=== PATIENT | male | born 1950 | race Caucasian/White ===

== ENCOUNTER 2019-02-20 23:01 | Inpatient (IN) ==
[2019-02-20] MEDS ORDERED: ZOFRAN IV ONE (23:41)
[2019-02-20] MEDS ORDERED: DILAUDID IV ONE (23:41)
[2019-02-20] MEDS ORDERED: NS 1,000 ML IV ONE (23:44)
[2019-02-21 00:18] LABS: URINE SOURCE CLEAN CATCH
[2019-02-21 00:28] LABS: BILIRUBIN URINE NEGATIVE (NEGATIVE); BLOOD URINE NEGATIVE (NEGATIVE); COLOR YELLOW; GLUCOSE URINE NEGATIVE (NEGATIVE); KETONE URINE TRACE mg/dL (NEGATIVE); LEUKOCYTES URINE NEGATIVE (NEGATIVE); NITRITE URINE NEGATIVE (NEGATIVE); PROTEIN URINE NEGATIVE (NEGATIVE); SP GRAVITY URINE 1.008; TURBIDITY URINE CLEAR (CLEAR); UR EPITHELIAL CELLS <10 /HPF (<10); URINE BACTERIA NEGATIVE /HPF; URINE RBC <10 /HPF (<10); URINE WBC <10 /HPF (<10); UROBILINOGEN URINE NORMAL (NORMAL)
[2019-02-21 00:40] LABS: BASO# 0.01 X1000 (0.0-0.2); BASO% 0.1 % (0.0-0.8); EOS# 0.12 X1000 (0.0-0.7); EOS% 0.8 % (0.0-10.0); HEMATOCRIT 41.2 % (42.0-52.0); HEMOGLOBIN 14.4 g/dL (14.0-18.0); IMM GRAN# 0.05 X1000 (0.0-0.04); IMM GRAN% 0.3 % (0.0-0.5); LYMPH# 2.04 X1000 (1.2-3.4); LYMPH% 13.3 % (20.5-51.1); MCH 29.1 PG (27-31); MCV 83.2 FL (81-99); MONO# 1.16 X1000 (0.11-0.59); MONO% 7.6 % (1.7-9.3); MPV 9.8 FL (7.4-10.4); NEUT# 11.98 X1000 (1.4-6.5); NEUT% 77.9 % (42.2-75.2); PLT 320 X1000 (130-400); RBC 4.95 XMIL (4.7-6.1); RDW 12.6 % (11.5-14.5); WBC 15.36 X1000 (4.8-10.8)
[2019-02-21 01:04] LABS: AGAP 14; ALB/GLOB RATIO 1.6; ALBUMIN 4.4 g/dL (3.5-5.0); ALKALINE PHOSPHATASE 97 U/L (32-122); BUN 17 mg/dL (8-22); CALCIUM 9.3 mg/dL (8.8-10.2); CHLORIDE 99 mmol/L (98-107); CK PROFILE 91 U/L (24-204); COSMO 282; CREATININE 0.9 mg/dL (0.7-1.2); ESTIMATED GFR > 60; GLUCOSE 177 mg/dL (70-104); GOT 38 U/L (10-34); GPT 36 U/L (10-44); LIPASE 2159 U/L (13-60); POTASSIUM 3.5 mmol/L (3.5-5.1); SODIUM 138 mmol/L (136-145); TCO2 25 mmol/L (25-35); TOTAL BILIRUBIN 0.55 mg/dL (0.20-1.00); TOTAL PROTEIN 7.2 g/dL (6.3-8.3)
[2019-02-21] MEDS ORDERED: NS 1,000 ML IV ONE (01:17)
[2019-02-21] MEDS ORDERED: DILAUDID IV ONE ×2 (01:17→04:24)
--- NOTE | 2019-02-21 01:26 | PROVIDER DOCUMENTATION ---
This chart was entered by Susie Love Scribe, acting as scribe for Moris Matthews MD. HPI-Abdominal Pain/GI Problem - General Source: patient - History of Present Illness-ABD Nature of Presenting Problems: Pt is 69/M presenting to ED w/ abd pain, n/v since about 9pm. Pt has hx of pancreatitis. Pt sts that he had BM that was normal this morning. Pt presented to ED via EMS. he states he has epigastric abdominal pain, diffuse to bilateral flanks. Abdominal Pain Onset Location: reports: epigastric Pain Radiation: reports: no radiation Quality of Pain: reports: aching Severity in ED: reports: moderate Onset/Duration: reports: 1-3 hours ago Timing: reports: still present Activities at Onset: reports: none Exposure to sick contacts?: No Modifying Factors: improves with: nothing Associated Symptoms: reports: nausea, vomiting. denies: chest pain, cough, shortness of breath Last BM: this morning Dark Stools Present?: reports: none noticed Rectal Bleeding: reports: none Rectal Pain: reports: none Emesis Description: reports: none <Moris Matthews - Last Filed: 02/21/19 01:18> <Bushra Salcido - Last Filed: 02/21/19 06:06> - General Chief Complaint: Nausea/Vomiting Stated Complaint: n/v Time Seen by Provider: 02/20/19 23:14 Allergies/Adverse Reactions: Patient Allergies Allergy/AdvReac Type Severity Reaction Status Date / Time acetaminophen [From Lortab] Allergy Severe ANAPHYLAXIS Verified 10/06/15 02:16 hydrocodone bitartrate * AdvReac Intermediate HIVES Verified 10/06/15 02:16 [From Lortab] Home Medications: Home Medication List Medication Instructions Recorded Confirmed Last Taken Type Omeprazole [Prilosec] 20 mg PO DAILY 06/08/12 09/05/18 1 Day Ago History ~09/04/18 Amlodipine [Norvasc] 5 mg PO DAILY 10/03/13 09/05/18 1 Day Ago History ~09/04/18 Lisinopril 10 mg PO DAILY #30 tab 09/05/18 Unknown Rx Metoprolol [Lopressor] 25 mg PO DAILY 09/05/18 09/05/18 1 Day Ago History ~09/04/18 Review of Systems - Adult - REVIEW OF SYSTEMS - ADULT Constitutional: reports: no symptoms reported. denies: chills, fever Eyes: reports: no symptoms reported Ears, Nose, Mouth & Throat: reports: no symptoms reported Cardiovascular: reports: no symptoms reported. denies: chest pain Respiratory: reports: no symptoms reported Gastrointestinal: reports: abdominal pain, nausea, vomiting. denies: diarrhea Genitourinary: reports: no symptoms reported Musculoskeletal: reports: no symptoms reported Integumentary: reports: no symptoms reported Neurological: reports: no symptoms reported. denies: dizziness/vertigo, headache/migraines Psychiatric: reports: no symptoms reported Endocrine: reports: no symptoms reported Hematologic/Lymphatic: reports: no symptoms reported Allergic/Immunologic: reports: no symptoms reported All Other Systems: Reviewed and Negative <Moris Matthews - Last Filed: 02/21/19 01:18> Past History - Adult - PAST MEDICAL HISTORY-ADULT Review of Records: reports: Old Records Reviewed, Nursing Assessment Review, Medications Reviewed, Social history reviewed & non-contributory. Major Childhood Illnesses: reports: denies history Cardiovascular: reports: denies history Respiratory: reports: denies history Gastrointestinal: reports: denies history Obstetrical/Gynecological: reports: denies history Genitourinary: reports: denies history Musculoskeletal: reports: denies history Neurological: reports: denies history Psychiatric: reports: denies history Endocrine/Immune: reports: denies history - SOCIAL HISTORY Smoking: denies, non-smoker Substance Use: none/never Alcohol Use Frequency: never Living Situation: family <Moris Matthews - Last Filed: 02/21/19 01:18> Physical Exam-General - CONSTITUTIONAL General Appearance: appears well, alert, mild distress - EYES Eyes: PERRL/EOMI, pink conjunctivae - HEAD, EARS, NOSE, MOUTH & THROAT HENMT: normocephalic/atraumatic, moist mucous membranes, normal ENT inspection, TMs normal - NECK Neck: non-tender - RESPIRATORY Respiratory: lungs clear - CARDIOVASCULAR Cardiovascular: regular rate, rhythm - GASTROINTESTINAL (ABDOMEN) Abdominal Exam: normal bowel sounds, rigid, tenderness (diffuse tenderness) - GENITOURINARY Male Genitalia: other (pt has ruptured L testicle, non tender) - LYMPHATIC Lymphatic: no adenopathy - MUSCULOSKELETAL Back Exam: normal inspection Extremity: normal range of motion, non-tender, normal gait, normal inspection - SKIN Integumentary: normal color, warm/dry - NEUROLOGIC Neurologic: grossly normal - PSYCHIATRIC Psych/Mental Status: normal mood/affect, normal thought content, normal thought process, oriented x 3 <Moris Matthews - Last Filed: 02/21/19 01:18> Progress - PLAN OF CARE/RESULTS Progress/Plan/Lab Results: Vital Signs - 8 hr 02/20/19 23:14 Temperature 97.6 F Pulse Rate 80 Respiratory Rate 16 Blood Pressure 158/91 O2 Sat by Pulse Oximetry 97 Orders Category Date Time Status Saline Loc NOW Care 02/20/19 23:40 Active CHEST-2 VIEWS [RAD] Stat Exams 02/20/19 23:41 Ordered CBC WITH ELECTRONIC DIFF [HEME] Stat Lab 02/20/19 23:40 Uncollected CK PROFILE [SP CHEM] Stat Lab 02/20/19 23:41 Uncollected COMPREHENSIVE METABOLIC PANEL [CHEM] Stat Lab 02/20/19 23:41 Uncollected LIPASE [CHEM] Stat Lab 02/20/19 23:41 Uncollected TROPONIN T Stat Lab 02/20/19 23:41 Uncollected URINALYSIS W/POSS RFLX CULT [URINALYSIS] Stat Lab 02/20/19 23:41 Uncollected 0.9% Sodium Chloride Inj [Ns] 1,000 ml Med 02/20/19 23:44 Active IV 999 mls/hr Hydromorphone [Dilaudid] Med 02/20/19 23:41 Discontinued 1 mg IV NOW ONE Ondansetron [Zofran] Med 02/20/19 23:41 Discontinued 4 mg IV NOW ONE EKG [EKG] Stat Ther 02/20/19 23:41 Ordered A/p: Pancreatitis. elevated lipase >2000. Pain controlled. Able to tolerate PO intake. elevated whit count. vitals stable. will DC home with [place] and zofran, with close FU with PCP in 2-3 days. Result Diagrams: 02/20/19 23:52 02/20/19 23:52 <Moris Matthews - Last Filed: 02/21/19 01:18> - PLAN OF CARE/RESULTS Progress/Plan/Lab Results: Vital Signs - 8 hr 02/20/19 23:14 Temperature 97.6 F Pulse Rate 80 Respiratory Rate 16 Blood Pressure 158/91 O2 Sat by Pulse Oximetry 97 Laboratory Results - last 24 hr 02/20/19 02/20/19 02/20/19 23:52 23:52 23:52 WBC 15.36 H RBC 4.95 Hgb 14.4 Hct 41.2 L MCV 83.2 MCH 29.1 MCHC 35.0 RDW Std Deviation 12.6 Plt Count 320 MPV 9.8 Immature Gran % (Auto) 0.3 Neut % (Auto) 77.9 H Lymph % (Auto) 13.3 L [place] % (Auto) 7.6 Eos % (Auto) 0.8 Baso % (Auto) 0.1 Immature Gran # (Auto) 0.05 H Neut # (Auto) 11.98 H Lymph # (Auto) 2.04 [place] # (Auto) 1.16 H Eos # (Auto) 0.12 Baso # (Auto) 0.01 Sodium 138 Potassium 3.5 Chloride 99 Carbon Dioxide 25 Anion Gap 14 BUN 17 Creatinine 0.9 Estimated GFR/1.73 m2 > 60 BUN/Creatinine Ratio 19 Glucose 177 H Calculated Osmolality 282 Calcium 9.3 Total Bilirubin 0.55 AST 38 H ALT 36 Alkaline Phosphatase 97 Creatine Kinase 91 Troponin T < 0.010 Total Protein 7.2 Albumin 4.4 Globulin 2.8 Albumin/Globulin Ratio 1.6 Lipase 2159 H Urine Source Urine Color Urine Turbidity Urine pH Ur Specific [place] Urine Protein Ur Glucose (Stick) Ur Ketones (Stick) Urine Blood Urine Nitrite Urine Bilirubin Urobilinogen Dipstick Urine Leukocytes Urine WBC (Auto) Urine RBC (Auto) U Epithel Cells (Auto) Urine Bacteria (Auto) 02/21/19 00:02 WBC RBC Hgb Hct MCV MCH MCHC RDW Std Deviation Plt Count MPV Immature Gran % (Auto) Neut % (Auto) Lymph % (Auto) [place] % (Auto) Eos % (Auto) Baso % (Auto) Immature Gran # (Auto) Neut # (Auto) Lymph # (Auto) [place] # (Auto) Eos # (Auto) Baso # (Auto) Sodium Potassium Chloride Carbon Dioxide Anion Gap BUN Creatinine Estimated GFR/1.73 m2 BUN/Creatinine Ratio Glucose Calculated Osmolality Calcium Total Bilirubin AST ALT Alkaline Phosphatase Creatine Kinase Troponin T Total Protein Albumin Globulin Albumin/Globulin Ratio Lipase Urine Source CLEAN CATCH Urine Color YELLOW Urine Turbidity CLEAR Urine pH 7.0 Ur Specific [place] 1.008 Urine Protein NEGATIVE Ur Glucose (Stick) NEGATIVE Ur Ketones (Stick) TRACE A Urine Blood NEGATIVE Urine Nitrite NEGATIVE Urine Bilirubin NEGATIVE Urobilinogen Dipstick NORMAL Urine Leukocytes NEGATIVE Urine WBC (Auto) <10 Urine RBC (Auto) <10 U Epithel Cells (Auto) <10 Urine Bacteria (Auto) NEGATIVE Orders Category Date Time Status Saline Loc NOW Care 02/20/19 23:40 Active CHEST-2 VIEWS [RAD] Stat Exams 02/20/19 23:[address] ABD/PELVIS W/IV CONT ONLY [CT] Stat Exams 02/21/19 01:42 Taken CBC WITH ELECTRONIC DIFF [HEME] Stat Lab 02/21/19 00:06 Completed CK PROFILE [SP CHEM] Stat Lab 02/21/19 00:06 Completed COMPREHENSIVE METABOLIC PANEL [CHEM] Stat Lab 02/21/19 00:06 Completed LIPASE [CHEM] Stat Lab 02/21/19 00:06 Completed TROPONIN T Stat Lab 02/21/19 00:06 Completed URINALYSIS W/POSS RFLX CULT [URINALYSIS] Stat Lab 02/21/19 00:02 Completed 0.9% Sodium Chloride Inj [Ns] 1,000 ml Med 02/20/19 23:44 Discontinued IV 999 mls/hr 0.9% Sodium Chloride Inj [Ns] 1,000 ml Med 02/21/19 01:17 Discontinued IV 999 mls/hr Hydromorphone [Dilaudid] Med 02/20/19 23:41 Discontinued 1 mg IV NOW ONE Hydromorphone [Dilaudid] Med 02/21/19 01:17 Discontinued 1 mg IV NOW ONE Ondansetron [Zofran] Med 02/20/19 23:41 Discontinued 4 mg IV NOW ONE EKG [EKG] Stat Ther 02/20/19 23:41 Ordered Result Diagrams: 02/20/19 23:52 02/20/19 23:52 - REASSESSMENT Reassessment #1 Status: worsening (pt signed out to me by Dr. Matthews pending CT results. CT consistent with pancreatitis without necrotizing component. Continues to have pain and nausea will treat and reassess.) Reassessment #2 Status: unchanged (Continued pain and nausea. Will admit for further evaluation and treatment. Discussed case with Dr. Rey hospitalist who will see and admit pt) - CT/MRI 1 CT Study: Abdomen, Pelvis Impression: Abnormal (per radiologist read: "inflammatory changes surrounding the head and body of the pancreas without evidence of organization or internal necrosis, findings consistent with pancreatitis. stable hypoattenuating lesion present within the pancreatic tail measuring 6mm") <Bushra Salcido - Last Filed: 02/21/19 06:06> Departure - Departure Date of Disposition Decision: 02/21/19 Certified Medical Emergency: Emergent - Critical Care Note This patient required my direct & personal management of CC.: No <Moris Matthews - Last Filed: 02/21/19 01:18> - Departure Time of Disposition Decision: 06:06 <Bushra Salcido - Last Filed: 02/21/19 06:06> - Departure DIAGNOSIS: Pancreatitis Qualifiers: Chronicity: acute Pancreatitis type: other Acute pancreatitis complication: no infection or necrosis Qualified Code(s): K85.80 - Other acute pancreatitis without necrosis or infection Disposition: ADMITTED INPATIENT 09 Condition: Stable Additional Freetext Instructions: We have examined and treated you today on an emergency basis only. This was not a substitute for, or an effort to provide, complete medical care. In most cases, you must let your doctor check you again. Tell your doctor about any new or lasting problems. We cannot recognize and treat all injuries or illnesses in one Emergency Department visit. If you had special tests, such as X-rays or CT scans, will be reviewed by radiologist and will call you if there are any new suggestions Follow up with primary care provider in 1 to 2 days if no improvement. If you do not have a primary care provider, you need to choose one as soon as possible. Take medicines as prescribed. Monitor for any side effects or adverse events from medications. If any side effect, adverse event or rash develops, or if you suspect any other adverse reaction to the medication, then discontinue the medication immediately and contact clinic /PCP or go to the nearest ER. Narcotic meds / sedative meds instruction - patent advised not to drive, operate any machinery or go into water after taking meds as it may impair mental ability to react to the situation in an appropriate manner. Continue other current medicines. Follow up with PCP within 24-48 hours, or sooner if symptoms worsen or fail to improve. Patient / guardian verbalizes understanding of treatment plan, medication, and side effects and agrees with treatment plan. Patient leaves ER in stable condition and ambulatory state. Return to ER as needed. Discharge instructions reviewed verbally and given to patient in written form. Follow up with primary care provider. Attestation - Physician/ ANDREA Attestation Patient care was provided by Advanced Practice Provider:: No The physician spent face to face time with patient:: Yes Advanced Practice Provider documentation review:: Supervising physician onsite and consulted in the evaluation and care of this patient. The physician did have a face to face encounter with the patient. <Moris Matthews - Last Filed: 02/21/19 01:18> This chart was documented by the indicated scribe, (Susie Love, Scribe) and accurately reflects the services I performed and decisions made by me, Moris Matthews MD, as attested by the provider's signature.
[2019-02-21] MEDS ORDERED: ZOFRAN IV ONE (04:24)
[2019-02-21] MEDS ORDERED: NS 1,000 ML IV SCH (07:00)
[2019-02-21] MEDS: DILAUDID IV PRN ×5 (08:09→22:08)
[2019-02-21] MEDS: LOVENOX SUBQ SCH (08:11)
[2019-02-21] MEDS ORDERED: SODIUM CHLORIDE 0.9% INJ SCH ×2 (09:00→10:45)
[2019-02-21] MEDS ORDERED: PRILOSEC PO SCH (09:00)
[2019-02-21] MEDS ORDERED: PROTONIX IV SCH (09:00)
--- NOTE | 2019-02-21 09:01 | Diag Imaging Result Doc PS360 ---
EXAM: CHEST-2 VIEWS INDICATION: sob TECHNIQUE: 2 views COMPARISON: 10/06/2015 FINDINGS: The lungs are grossly clear. There is no discrete pleural fluid collection or pneumothorax. The cardiomediastinal silhouette and central vasculature are grossly unremarkable. IMPRESSION: No evidence of acute pathology by plain radiograph. Electronically signed by Ezequiel Bloom 02/21/2019 8:59 AM
--- NOTE | 2019-02-21 09:32 | HISTORY AND PHYSICAL ---
HISTORY OF PRESENT ILLNESS: Mr. Wynn had supper last night. I think it was some shrimp at about 5:00. About 8:30, he started having pain, epigastric, left side, consistent with pain he has had before with pancreatitis. He has a history of episodes of pancreatitis and he has had a stent placed. He has a pancreatic pseudocyst. He is status post cholecystectomy, history of hypertension, history of gastroesophageal reflux disease. I think the last time he was here was 2013, admission for acute cystitis, acute pancreatitis, and pancreatic pseudocyst. He underwent cholecystectomy during that admission on 10/05/2013 and returned back on 11/08/2013 with a 4-day history of right upper quadrant and epigastric pain associated with nausea, vomiting, and occasional diarrhea. The patient had a fever of 101 at that time and workup. I think he eventually ended up going to [place]. He was under Dr. Lares's direction. Transferred to [facility]. He had a complicated pseudocyst and a lot of gallbladder sludge, and status post cholecystectomy in September 2013, and was treated conservatively. Elevated liver enzymes probably secondary to the pseudocyst so he was transferred to [facility], and I think he had a stent placed, drainage of the pseudocyst, it is my understanding. PAST SURGICAL HISTORY: 1. Status post cholecystectomy. 2. Stent placed, pancreatic stent I believe sometime in 2013. FAMILY HISTORY: Dad of myocardial infarction. SOCIAL HISTORY: No history of tobacco or ethanol or illicit drugs. ALLERGIES: Hydrocodone is listed. REVIEW OF SYSTEMS: General: He has not noticed any weight gain or loss, or fever or chills. HEENT: Unremarkable. No change in hearing or visual acuity reported. No neck pain or cervical adenopathy. Respiratory: No increased work of breathing or dyspnea. Cardiovascular: No chest pain or tachy palpitations. GI and : Unremarkable. No change in bowels or complaints of dysuria or gross hematuria. The pain started yesterday evening but apparently, he has had no real change in his diet. Endocrinologic and Hematologic: No significant history. Musculoskeletal and Neurologic: No significant complaints. PHYSICAL EXAMINATION: VITAL SIGNS: Temperature 97.6 degrees, pulse 98, respirations 19, blood pressure 130/67. HEENT: Pupils are equal and round. LUNGS: Clear in all lung graves. Lungs are clear anterolateral. CARDIOVASCULAR: Regular rhythm and rate without murmur or S3. ABDOMEN: Soft. Tender and most tender at his epigastric area. Diminished bowel sounds. SKIN: Warm and dry. Without any discoloration. No pedal edema. HEIGHT: Height 5 feet 7 inches. NECK: No distended neck veins. CVP less than 6 cm from the right atrium. I do not appreciate any cervical or supraclavicular adenopathy. LABORATORY DATA: White count 15,360, hematocrit 41, platelet count 320,000. Sodium 138, potassium 3.5, chloride 99, BUN 17, creatinine 0.9, calcium is 9.3. AST is 38, ALT is 36, alkaline phosphatase is 97, albumin is 4.4. Urinalysis unremarkable. ASSESSMENT AND PLAN: 1. Pancreatitis. Lipase is 2159. As far as I know, he still has a stent. I am not sure if that stent is in the pseudocyst or what is involved. We will get gastroenterology to help us with this. He has not started on any real new medications other than his losartan for blood pressure. I think we will hold the losartan for now. We will give him normal saline at 125 mL an hour. For pain control, he can have Dilaudid 1 mg 3 hours as needed for pain. We will hold the Cozaar. We will put him on Protonix 40 mg intravenous every 12 hours. I think we will hold the Norvasc as well at this time. We will follow up with his pancreatic enzymes. 2. Hypertension. I am going to hold his medicines for right now. We will watch his blood pressure. 3. History of gastroesophageal reflux. We have him on high-dose proton pump inhibitor, 40 mg intravenously every 12 hours. We will consult gastroenterology. cc: Shon Butron MD
--- NOTE | 2019-02-21 10:53 | Diag Imaging Result Doc PS360 ---
EXAM: CT ABD/PELVIS W/IV CONT ONLY INDICATION: pancreatitis hx of necrotizing pancreatitis TECHNIQUE: This exam was performed using automated exposure control, adjustment of mA or kV according to patient size, and/or use of iterative reconstruction technique. COMPARISON: 11/07/2013 FINDINGS: There is minimal linear scarring and/or atelectasis at the lung bases. There is mild to moderate hepatic steatosis. There has been a prior cholecystectomy. There is no significant biliary dilatation. There is extensive inflammatory stranding and a small to moderate amount of nonloculated free fluid around the head and body of the pancreas consistent with acute pancreatitis. There is a stable tiny cystic appearing focus involving the distal pancreatic tail. On the previous study there was a large pseudocyst that has resolved. No definite pseudocyst is appreciated on the current study. There is nothing to suggest peripancreatic abscess there is nothing that would suggest acute pancreatic necrosis. The portal and splenic veins are patent. The spleen, adrenal glands, kidneys, and urinary bladder are unremarkable. There is a small right inguinal hernia that contains only fat. There are stable bilateral scrotal hydroceles, largest on the left. The appendix is normal. There is moderate uncomplicated sigmoid colonic diverticulosis. There is no evidence of diverticulitis. There is a stable small hiatal hernia. There is no focal bowel wall thickening and no evidence of bowel obstruction. The remainder of the GI tract is essentially unremarkable. There are shotty small lymph nodes at the root of the mesentery with surrounding haziness. This is also seen on the previous study but the nodes were actually larger on the prior study. Although nonspecific, this is often associated with chronic mesenteric panniculitis. There is multilevel spondylosis and there is stable chronic spondylolysis at L4 with mild anterolisthesis. IMPRESSION: 1.Acute pancreatitis as described with no definite acute pancreatic necrosis or peripancreatic abscess. 2.Other incidental/nonacute findings detailed above. Electronically signed by Ezequiel Bloom 02/21/2019 10:50 AM
--- NOTE | 2019-02-21 11:13 | GASTROENTEROLOGY CONSULTATION ---
DATE: 02/21/2019 REASON FOR CONSULTATION: Acute pancreatitis. HISTORY OF PRESENT ILLNESS: Mr. 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 The patient reports being in his usual state of health until about 8:30 p.m. last evening when he developed upper abdominal pain with associated bilious emesis. He describes the pain as being constant and 9 out of 10. He denies any fevers, chills, sweats, shortness of breath, chest pain, change in bowel habits, abnormal weight loss, rectal bleeding or melena. He denies any new medications, sick contacts, or recent hospitalizations. He is followed by Dr. Ayers at [facility] and was scheduled for an MRI in the next couple of weeks to evaluate his pancreas. He is not aware of having a history of chronic pancreatitis in the past. He has had at least 2 EUS's since his last episode of pancreatitis in 2013. REVIEW OF SYSTEMS: As per HPI, otherwise 12 point review of systems is negative. PAST MEDICAL HISTORY: As per HPI. PAST SURGICAL HISTORY: 1. Hernia repair. 2. Percutaneous pseudocyst drainage. 3. Cystogastrostomy. 4. Pancreatic stent placement. 5. Cholecystectomy. MEDICATIONS: 1. Omeprazole. 2. Amlodipine. 3. Losartan. ALLERGIES: Codeine. FAMILY HISTORY: No family history of pancreatitis. SOCIAL HISTORY: No smoking, alcohol, or drug use. PHYSICAL EXAMINATION: Vital Signs: Temperature is 97.5 degrees, heart rate of 104, respiratory rate 24, blood pressure 168/72, O2 saturation 97% on room air. General: Patient is awake, alert, oriented, in moderate distress secondary to pain. HEENT: Sclerae anicteric. Moist mucous membranes. Extraocular motor intact. Neck: Supple. No JVD or lymphadenopathy. Cardiac: Tachycardic, regular. No murmurs. Lungs: Clear to auscultation bilaterally. No wheezing. Abdomen: Obese, soft, diffuse tenderness to palpation, worse in the upper abdomen. No rebound, voluntary guarding. Bowel sounds are present. No tympany. Extremities: No clubbing, cyanosis, or edema. Skin: Diaphoretic, warm and well perfused. Neurologic: Nonfocal. LABORATORY DATA: White count of 15.36, hemoglobin 14.4, platelets of 320,000. CMP notable for glucose of 177, AST of 38, lipase of 2159. UA shows ketones. Prior IgG4 was normal. Prior triglycerides were normal in 2014. Chest x-ray shows no acute pathology. CT abdomen and pelvis read is pending. ASSESSMENT AND PLAN: Ms. Best Wynn is a 69-year-old man with notable past medical history of necrotizing pancreatitis complicated by pseudocyst requiring drainage and pancreatic stent placement, who presents with acute pancreatitis. The patient has had a negative workup for autoimmune and pancreatitis, elevated triglycerides and MRI for pancreatic divisum. 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 I do not have any records from his EUS procedures in the past. He does have a MRI here that was negative for divisum or stricture. He was scheduled for MRI as an outpatient with Dr. Ayers We will likely postpone this for now as it would not be helpful during acute episode of pancreatitis. Await the imaging results. He does have leukocytosis but is afebrile. 1. For his pancreatitis, we will treat supportively with IV fluids, pain control, NPO status, serial abdominal exams and labs. 2. Leukocytosis likely acute phase reactant in the setting of pancreatitis. We will continue to trend his CBC.We will hold off on antibiotics for now. 3. History of pancreatic pseudocysts we will await CT scan results for further evaluation. Of note, patient reports having a staph infection, likely secondary to pseudocyst drainage. 4. Hypertension, we will hold blood pressure medications for now. 5. Gastroesophageal reflux disease. Continue proton pump inhibitor IV once daily. Thank you for this consult. We will follow with you. Please call with any questions or concerns. [facility]ITALAnthony
[2019-02-21] MEDS: ZOFRAN IV PRN ×3 (11:23→22:07)
[2019-02-21] MEDS: PROTONIX IV SCH (16:00)
[2019-02-21] MEDS: NS 1,000 ML IV SCH (18:10)
[2019-02-22] MEDS: DILAUDID IV PRN ×4 (03:34→17:53)
[2019-02-22] MEDS: ZOFRAN IV PRN ×3 (03:36→14:13)
[2019-02-22] MEDS: NS 1,000 ML IV SCH ×3 (05:14→20:44)
[2019-02-22] MEDS: LOVENOX SUBQ SCH ×2 (05:35→07:45)
[2019-02-22 07:30] LABS: BASO# 0.02 X1000 (0.0-0.2); BASO% 0.1 % (0.0-0.8); EOS# 0.01 X1000 (0.0-0.7); HEMATOCRIT 43.7 % (42.0-52.0); HEMOGLOBIN 14.7 g/dL (14.0-18.0); IMM GRAN# 0.08 X1000 (0.0-0.04); IMM GRAN% 0.3 % (0.0-0.5); LYMPH% 7.3 % (20.5-51.1); MCH 28.8 PG (27-31); MCHC 33.6 g/dL (33-37); MCV 85.7 FL (81-99); MONO# 1.81 X1000 (0.11-0.59); MONO% 6.9 % (1.7-9.3); MPV 9.9 FL (7.4-10.4); NEUT# 22.25 X1000 (1.4-6.5); NEUT% 85.4 % (42.2-75.2); PLT 303 X1000 (130-400); RDW 13.5 % (11.5-14.5); WBC 26.07 X1000 (4.8-10.8)
[2019-02-22 07:45] LABS: AGAP 15; BUN 19 mg/dL (8-22); CALCIUM 8.9 mg/dL (8.8-10.2); CHLORIDE 104 mmol/L (98-107); CHOLESTEROL 167 mg/dL (0-200); COSMO 285; CREATININE 0.9 mg/dL (0.7-1.2); ESTIMATED GFR > 60; GLUCOSE 160 mg/dL (70-104); HDL 41 mg/dL (35-55); LDL 105 mg/dL; POTASSIUM 4.2 mmol/L (3.5-5.1); SODIUM 140 mmol/L (136-145); TCO2 21 mmol/L (25-35); TRIGLYCERIDES 107 mg/dL (39-160); VLDL 21 mg/dL
[2019-02-22 08:16] LABS: FREE T4 0.98 ng/dL (0.93-1.70); TSH 3.04 uIUmL (0.27-4.20)
[2019-02-22 08:34] LABS: BANDS 6 % (0-1); LYMPHS 6 % (21-51); SEGS 88 % (42-75)
[2019-02-22 08:50] LABS: ALB/GLOB RATIO 1.1; ALBUMIN 3.7 g/dL (3.5-5.0); DIRECT BILIRUBIN 0.2 mg/dL (0.00-0.20); TOTAL BILIRUBIN 0.94 mg/dL (0.20-1.00); TOTAL PROTEIN 7.2 g/dL (6.3-8.3)
--- NOTE | 2019-02-22 10:24 | PROGRESS NOTE ---
DATE: 02/22/2019 SUBJECTIVE: Mr. Wynn was feeling much better. His pain went from a 10 to about a 6 now. He is requesting some clear liquids and I think I will start him on that. OBJECTIVE: Temperature 98.7 degrees, pulse 111, respirations 16, blood pressure 148/88. Pupils are equal and round. No distended neck veins. Lungs are clear in all lung graves. Cardiovascular Examination: Regular rhythm and rate without murmur or S3. Abdomen is log deck tender in the epigastrium and left upper quadrant but less tender than yesterday. No pedal edema. Urine output was over 1300 mL. ASSESSMENT AND PLAN: 1. 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 I think the initial insult was in 2011. I think the stent was placed in 2013. He has had negative workup for autoimmune pancreatitis, elevated triglycerides, and an MRI that showed pancreatic divisum. 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 I do not have the records but he has had endoscopic ultrasound procedures and followed in [place] as an outpatient by Dr. Ayers. He is scheduled for an MRI later on this month. Continue nothing per oral. Let him try some clear liquids at his request. 2. Leukocytosis, likely acute phase, reactant in the setting of pancreatitis. I do not see any evidence of infection. 3. Pancreatic pseudocyst. Await for CT results. Of note, Dr. Valverde commented on he had a history of staphylococcus infection, likely secondary to pseudocyst drainage. 4. Blood pressure. Continue blood pressure medications. 5. Gastroesophageal reflux disease. I will try clear liquids and see if this will help. cc: Shon Burton MD
[2019-02-22] MEDS ORDERED: MOTRIN PO PRN (11:03)
[2019-02-22] MEDS: PROTONIX IV SCH (12:52)
--- NOTE | 2019-02-22 16:05 | GASTROENTEROLOGY PROGRESS NOTE ---
DATE: 02/22/2019 SUBJECTIVE: Patient is resting in bed. He complains of abdominal pain. It has improved slightly from yesterday. He was admitted with pancreatitis. His lipase has improved. He denies any fevers, rigors, or chills. OBJECTIVE: Vital signs: Temperature 98.7 degrees, pulse rate of 111, respiratory rate of 16, blood pressure 140/88, saturating 93% on room air. Body weight of 230 pounds, BMI of 36 kg/m2. General appearance: Obese, lying in bed, in no acute distress. HEENT: No pallor. No icterus. Pupils equal, reactive to light and accommodation. Neck: Supple. Abdomen: Discomfort in the epigastrium. Distention. Mild protuberance of the abdomen noted. No guarding. Extremities: No cyanosis, clubbing. Neurologic: Alert, awake, oriented x3. LABS: Hemoglobin and hematocrit are 14.7 and 43.7, white count of 26, platelet count of 303,000. Sodium 140, potassium 4.2, chloride 104, bicarb of 20, anion gap 15, BUN of 19, creatinine 0.9, glucose of 160, calcium 8.9, total bilirubin is 0.94, direct 0.2, AST 26, ALT 31, alkaline phosphatase 87, total protein 7.2, albumin of 3.7. B12 of 389, folate of 36.8. Urinalysis showing trace ketones. CT scan done on admission on 02/21 showed acute pancreatitis with no definite acute pancreatic necrosis or peripancreatic abscess. There is a tiny cystic appearing focus involving the distal pancreatic tail. There has been prior cholecystectomy. There is mild to moderate hepatic steatosis. Portal and splenic veins are patent. There is a right inguinal hernia that contains only fat. There are stable bilateral scrotal hydroceles, larger on the left. There is moderate uncomplicated sigmoid colonic diverticulosis. There was no evidence of diverticulitis. There is a stable small hiatal hernia. Multilevel spondylosis and stable chronic spondylosis at L4 with mild anterolisthesis. ASSESSMENT AND PLAN: 1. Acute pancreatitis, unclear etiology. Could be a common bile duct or pancreatic duct stricture or biliary sludge. The patient is scheduled for MRI and MRCP as an outpatient at [facility] with his primary gastroenterology on March 02, 2019. In the interim, we will continue on IV fluids, IV pain control, IV antiemetics. We will keep him on a clear liquid diet. 2. Gastrointestinal prophylaxis with PPIs. 3. Fatty liver. Patient needs to lose weight. He will continue a low-fat diet. 4. Reflux disease. Continue PPIs as above. 5. Disposition. Patient will continue to follow up at [facility] for further management of his recurrent pancreatitis. This is his 3rd episode of pancreatitis since 2013. His prior pancreatitis has been complicated with pancreatic necrosis and pseudocyst requiring drain placement and he had ERCP and stent placement of the pancreatic duct at [facility] many years ago. 6. We will follow along. The above plan was discussed with the patient and family at bedside and all questions answered. Please call us with any further questions. cc: MD Mike Sampson MD
[2019-02-22] MEDS: NORVASC PO SCH (17:53)
[2019-02-22] MEDS: COZAAR PO SCH (17:53)
[2019-02-23] MEDS: DILAUDID IV PRN (00:26)
[2019-02-23] MEDS: NS 1,000 ML IV SCH (06:17)
[2019-02-23] MEDS: LOVENOX SUBQ SCH (06:18)
[2019-02-23 06:40] LABS: BASO# 0.03 X1000 (0.0-0.2); BASO% 0.1 % (0.0-0.8); EOS# 0.14 X1000 (0.0-0.7); EOS% 0.7 % (0.0-10.0); HEMATOCRIT 38.3 % (42.0-52.0); HEMOGLOBIN 13.3 g/dL (14.0-18.0); IMM GRAN# 0.08 X1000 (0.0-0.04); IMM GRAN% 0.4 % (0.0-0.5); LYMPH# 2.11 X1000 (1.2-3.4); LYMPH% 10.1 % (20.5-51.1); MCH 29.4 PG (27-31); MCHC 34.7 g/dL (33-37); MCV 84.7 FL (81-99); MONO# 1.91 X1000 (0.11-0.59); MONO% 9.2 % (1.7-9.3); MPV 9.4 FL (7.4-10.4); NEUT# 16.53 X1000 (1.4-6.5); NEUT% 79.5 % (42.2-75.2); PLT 257 X1000 (130-400); RBC 4.52 XMIL (4.7-6.1); RDW 12.9 % (11.5-14.5)
[2019-02-23 06:58] LABS: AGAP 11; ALB/GLOB RATIO 1.1; ALBUMIN 3.5 g/dL (3.5-5.0); ALKALINE PHOSPHATASE 80 U/L (32-122); BUN 16 mg/dL (8-22); CALCIUM 8.5 mg/dL (8.8-10.2); CHLORIDE 102 mmol/L (98-107); COSMO 280; CREATININE 0.8 mg/dL (0.7-1.2); ESTIMATED GFR > 60; GLUCOSE 148 mg/dL (70-104); GOT 27 U/L (10-34); GPT 30 U/L (10-44); POTASSIUM 3.2 mmol/L (3.5-5.1); SODIUM 138 mmol/L (136-145); TCO2 25 mmol/L (25-35); TOTAL BILIRUBIN 1.17 mg/dL (0.20-1.00); TOTAL PROTEIN 6.6 g/dL (6.3-8.3)
[2019-02-23 08:39] LABS: HEMOGLOBIN A1C 6.3 % (4.8-6.0)
[2019-02-23] MEDS ORDERED: KLOR-CON PO ONE (09:01)
[2019-02-23] MEDS: NORVASC PO SCH (09:46)
[2019-02-23] MEDS: COZAAR PO SCH (09:46)
[2019-02-23] MEDS: NORCO-5 PO PRN ×3 (09:47→23:52)
[2019-02-23] MEDS: PROTONIX PO SCH (11:07)
--- NOTE | 2019-02-23 18:15 | PROGRESS NOTE ---
DATE: 02/23/2019 SUBJECTIVE: The patient states that he feels a lot better today. His abdominal pain has improved. He has had no further nausea or vomiting. OBJECTIVE: Vital Signs: Temperature 98.7 degrees, blood pressure 154/74, heart rate 109, respirations 15, O2 saturation 96% on room air. General: This is a chronically ill-appearing elderly male lying in bed in no acute distress. Heart: S1, S2 normal. Tachycardic. Lungs: Equal air entry bilaterally. No crackles. No rales. Abdomen: Positive bowel sounds. Soft, nontender, nondistended. Extremities: No edema, no cyanosis. Neurologic: The patient is alert and oriented x3. LABS: White blood cell count 20, hemoglobin 13, hematocrit 38, platelets 257,000, sodium 138, potassium 3.2, chloride 102, CO2 25, BUN 16, creatinine 0.8, glucose 148, A1c 6.3. ASSESSMENT AND PLAN: 1. Acute pancreatitis. This appears to be improving slowly. The patient remains on IV fluids. His diet has been advanced by GI. Continue to monitor for improvement. 2. Prediabetes. The patient's hemoglobin A1c is 6.3. The patient was counseled about the importance of weight loss and proper diet. We will cover the patient with sliding scale insulin while hospitalized. We will also consult with the dietitian. 3. Hypokalemia. We will replace the patient's potassium. 4. Leukocytosis. Improved. 5. Deep vein thrombosis prophylaxis. Continue on Lovenox. cc: Karie Gomez MD MTDD
--- NOTE | 2019-02-23 23:48 | PROVIDER PROGRESS NOTE ---
Progress Note SUBJECTIVE: No acute overnight events. Afebrile. No N/V/F, CP. Abdominal pain significantly improved. Reports some constipation. Tolerating clears. OBJECTIVE: Last Vital Signs Temp 99.3 F 02/23/19 21:00 Pulse 101 H 02/23/19 21:00 Resp 18 02/23/19 21:00 BP 160/82 02/23/19 21:00 Pulse Ox 96 02/23/19 21:00 Height 5 ft 7 in Weight 230 lb GEN: awake, alert, NAD HEENT: anicteric, MMM NECK: supple, no jvd PULM: CTAB, no wheezing CV: RRR, no murmurs ABD: soft ND, NT, NABS EXT: no cce NEURO: nonfocal LABS: 02/23/19 02/23/19 02/23/19 05:56 05:56 05:56 WBC 20.80 H Hgb 13.3 L Plt Count 257 Sodium 138 Potassium 3.2 L D Chloride 102 Carbon Dioxide 25 BUN 16 Creatinine 0.8 Glucose 148 H Hemoglobin A1c 6.3 H ASSESSMENT AND PLAN: Mr. Best Wynn is a 69-year-old man with notable past medical history of necrotizing pancreatitis complicated by pseudocyst requiring drainage and pancreatic stent placement, who presents with acute pancreatitis. The patient has had a negative workup for autoimmune, hypertriglyceridemia, pancreatic divisum in the past. He was told that he may some congenital pancreatic duct malformation that could be responsible for his recurrent episodes of pancreatitis. He has had significant improvement with supportive care. # Pancreatitis: transition IV to oral pain meds; cont IVFs; advanced to low fat diet # Hypokalemia: repleted K # Leukocytosis: reactive; trending # History of pancreatic pseudocysts: resolved on imaging # HTN: controlled # GERD: on PPI # Prediabetes: a1c 6.3; encouraged weight loss Will follow with you.
[2019-02-24] MEDS: LOVENOX SUBQ SCH (06:14)
[2019-02-24 06:55] LABS: AGAP 9; ALBUMIN 3.3 g/dL (3.5-5.0); ALKALINE PHOSPHATASE 89 U/L (32-122); BUN 13 mg/dL (8-22); CALCIUM 8.5 mg/dL (8.8-10.2); CHLORIDE 101 mmol/L (98-107); COSMO 275; CREATININE 0.8 mg/dL (0.7-1.2); ESTIMATED GFR > 60; GLUCOSE 122 mg/dL (70-104); GOT 44 U/L (10-34); GPT 49 U/L (10-44); POTASSIUM 3.3 mmol/L (3.5-5.1); SODIUM 137 mmol/L (136-145); TCO2 27 mmol/L (25-35); TOTAL BILIRUBIN 1.06 mg/dL (0.20-1.00); TOTAL PROTEIN 6.5 g/dL (6.3-8.3)
[2019-02-24 07:01] LABS: BASO% 0.2 % (0.0-0.8); EOS% 2.9 % (0.0-10.0); HEMATOCRIT 38.5 % (42.0-52.0); HEMOGLOBIN 13.3 g/dL (14.0-18.0); IMM GRAN% 0.3 % (0.0-0.5); LYMPH% 16.6 % (20.5-51.1); MCH 28.9 PG (27-31); MCHC 34.5 g/dL (33-37); MCV 83.7 FL (81-99); MONO% 9.4 % (1.7-9.3); MPV 9.6 FL (7.4-10.4); NEUT% 70.6 % (42.2-75.2); PLT 267 X1000 (130-400); RDW 12.7 % (11.5-14.5); WBC 14.34 X1000 (4.8-10.8)
[2019-02-24 07:02] LABS: BASO# 0.03 X1000 (0.0-0.2); EOS# 0.42 X1000 (0.0-0.7); IMM GRAN# 0.05 X1000 (0.0-0.04); LYMPH# 2.38 X1000 (1.2-3.4); MONO# 1.35 X1000 (0.11-0.59); NEUT# 10.11 X1000 (1.4-6.5)
[2019-02-24 07:17] VITALS: BP 125/66
[2019-02-24] MEDS ORDERED: KLOR-CON PO ONE (07:49)
[2019-02-24] MEDS: PROTONIX PO SCH (08:15)
[2019-02-24] MEDS: NORVASC PO SCH (08:43)
[2019-02-24] MEDS ORDERED: MIRALAX PO SCH (09:00)
[2019-02-24] MEDS ORDERED: COLACE PO SCH (09:00)
--- NOTE | 2019-02-24 10:01 | PROVIDER PROGRESS NOTE ---
Progress Note SUBJECTIVE: No acute overnight events. He denies N/V/F, abdominal pain. He is tolerating low fat diet. BM this AM. OBJECTIVE: Last Vital Signs Temp 98.4 F 02/24/19 07:16 Pulse 84 02/24/19 07:16 Resp 12 02/24/19 07:16 BP 125/66 02/24/19 07:16 Pulse Ox 96 02/24/19 07:16 Height 5 ft 7 in Weight 230 lb GEN: awake, alert, NAD HEENT: anicteric, MMM NECK: supple, no jvd PULM: CTAB, no wheezing CV: RRR, no murmurs ABD: soft ND, NT, NABS EXT: no cce NEURO: nonfocal LABS: 02/24/19 02/24/19 05:45 05:45 WBC 14.34 H Hgb 13.3 L Plt Count 267 Sodium 137 Potassium 3.3 L Chloride 101 Carbon Dioxide 27 BUN 13 Creatinine 0.8 Glucose 122 H Total Bilirubin 1.06 H AST 44 H ALT 49 H Alkaline Phosphatase 89 Total Protein 6.5 Albumin 3.3 L ASSESSMENT AND PLAN: Mr. Best Wynn is a 69-year-old man with notable past medical history of necrotizing pancreatitis complicated by pseudocyst requiring drainage and pancreatic stent placement in the past who presented with uncomplicated acute pancreatits. His is doing well. Leukocytosis improving. Adomen benign. # Pancreatitis: improved: patient will discuss possible postponing outpatient MRCP with [facility] until pancreatic inflammation resolves; continue low fat diet # Hypokalemia: repleted K # Leukocytosis: reactive; improving # History of pancreatic pseudocysts: resolved on imaging # HTN: controlled # GERD: on PPI # Prediabetes: a1c 6.3; encouraged weight loss Ok to discharge from GI standpoint. Follow-up with Dr. Lares in 4 weeks. Will sign off.
[2019-02-24] MEDS: COZAAR PO SCH (10:03)
--- NOTE | 2019-03-08 20:13 | DISCHARGE SUMMARY ---
ADMISSION DATE: 02/21/2019 DISCHARGE DATE: 02/24/2019 FINAL DISCHARGE DIAGNOSES: 1. Acute pancreatitis. 2. Pre diabetes. 3. Hypokalemia. 4. Leukocytosis. 5. Hypertension CONSULTATIONS: GI consultation with Dr. Valverde. IMAGING: CT of the abdomen and pelvis which revealed acute pancreatitis. HOSPITAL COURSE: Mr. Wynn is a 69-year-old male with a history of pancreatitis who presented to the ER with a chief complaint of epigastric pain as well as nausea and vomiting. The patient was admitted to the hospitalist service and GI was consulted. On admission, the patient was noted to have a lipase of 2159. The patient was made NPO and started on aggressive IV fluid hydration. Slowly over the course of the hospitalization, the patient's abdominal pain improved and his diet was slowly advanced. The patient was able to have a bowel movement and tolerate his diet without any pain. The patient was noted to be prediabetic. A exchange mechanic was consulted to provide the patient with dietary recommendations. The patient was also provided with a prescription for a glucometer, lancets, and test strips. The patient was advised to follow up with his primary care physician in 1 week. The patient was ultimately cleared for discharge on 02/24/2019. DISCHARGE MEDICATIONS: 1. Norvasc 20 mg oral daily. 2. Colace 100 mg oral twice a day. 3. Norvasc 5/325 one tab oral 3 times a day p.r.n. 4. MiraLAX 17 g oral twice a day. 5. Prilosec 20 mg p.o. daily. 6. Cozaar 50 mg p.o. daily. DISCHARGE DIET: Low fat and diabetic diet ACTIVITY: As tolerated. FOLLOWUP INSTRUCTIONS: The patient will need to follow up with his pipe fitter [facility] as scheduled. He will also follow up with his primary care physician in 1 week. cc: Karie Gomez MD MTDD
== END 2019-02-24 11:15 | disposition home or self-care (01) | DRG 440 ==
LOC: SUPCPDRO → ED 23:01 → 4N 02-21 08:31 → SUATTDRO 02-21 08:31
PROVIDERS: ATTEND Internal Medicine
CPT/HCPCS: 71020; 71046; 74177; 80048; 80053; 80061; 80076; 81001; 82550; 82607; 82746; 82784; 82787; 83036; 83690; 83735; 84439; 84443; 84484; 85025; 93005; 96361; 96372; 96374; 96375; 96376; 99285; A9270; C9113; J1170; J1650; J2405; J7030; Q9967; S0164

== ENCOUNTER 2019-04-21 01:34 | Inpatient (IN) ==
[2019-04-21] MEDS ORDERED: NS 1,000 ML IV ONE (01:58)
--- NOTE | 2019-04-21 02:26 | PROVIDER DOCUMENTATION ---
HPI-Abdominal Pain/GI Problem - General Chief Complaint: Abdominal Pain Stated Complaint: PANCREATITIS Time Seen by Provider: 04/21/19 01:57 Allergies/Adverse Reactions: Patient Allergies Allergy/AdvReac Type Severity Reaction Status Date / Time hydrocodone [From Lortab] AdvReac SHORTNESS Verified 04/21/19 16:53 OF BREATH Home Medications: Home Medication List Medication Instructions Recorded Confirmed Last Taken Type Omeprazole [Prilosec] 20 mg PO DAILY 06/08/12 04/21/19 04/20/19 History Amlodipine [Norvasc] 20 mg PO DAILY 10/03/13 04/21/19 04/20/19 History Losartan [Cozaar] 50 mg PO DAILY 02/21/19 04/21/19 04/20/19 History Psyllium Seed (with Sugar) 1 packet PO HS 04/21/19 04/21/19 Unknown History [Metamucil Packet] Hydrocodone/Acetaminophen [[place] 1 ea PO Q6HR PRN #20 tab 04/23/19 Unknown Rx 7.5-325 Tablet] - History of Present Illness-ABD Nature of Presenting Problems: A 69 y/o male presents with c/o abd pain. As per the pt the pain started around 10 pm while he was trying to sleep. Pain is about a 6 on pain scale and present allover his belly. Had 2 episodes of emesis, per pt looked like bile. Per pt it feels similar to previous pain he had with his pancreatitis. Per pt he had a heavy meal today. He had some cereal around 730. denies any constipation or diarrhea or fever or chills. Around 1 am took some norco and it did not help. Per pt his last pancreatitis episode was in February. Abdominal Pain Onset Location: reports: generalized abdomen Pain Radiation: reports: no radiation Quality of Pain: reports: sharp Severity in ED: reports: severe Onset/Duration: reports: 4-6 hours ago Timing: reports: still present Associated Symptoms: reports: loss of appetite, vomiting, weakness. denies: back/neck pain, chest pain, constipation, cough, diaphoresis, diarrhea, EENT symptoms, fatigue, fever/chills, genitourinary problems, headaches, heartburn, joint pain, malaise, muscle aches, sinus congestion/drainage, nausea, rash, shortness of breath, sensory/motor loss, pain with inspiration, syncope, trouble walking Dark Stools Present?: reports: none noticed Rectal Bleeding: reports: none Bruising or Bleeding Gums?: No Similar Symptoms Previously?: Yes Recently seen or treated by another doctor?: No Review of Systems - Adult - REVIEW OF SYSTEMS - ADULT Constitutional: denies: no symptoms reported Eyes: denies: no symptoms reported Ears, Nose, Mouth & Throat: denies: no symptoms reported Cardiovascular: denies: no symptoms reported Respiratory: denies: no symptoms reported Gastrointestinal: reports: see HPI Genitourinary: denies: no symptoms reported Musculoskeletal: denies: no symptoms reported Integumentary: denies: no symptoms reported Neurological: denies: no symptoms reported Psychiatric: denies: no symptoms reported Endocrine: denies: no symptoms reported Hematologic/Lymphatic: denies: no symptoms reported Allergic/Immunologic: denies: no symptoms reported Past History - Adult - PAST MEDICAL HISTORY-ADULT Review of Records: reports: Nursing Assessment Review, Medications Reviewed, Social history reviewed & non-contributory. Major Childhood Illnesses: reports: denies history Physical Exam-General - PHYSICAL EXAM-ADULT Initial Vital Signs Reviewed: Yes - CONSTITUTIONAL General Appearance: alert, mild distress - EYES Eyes: PERRL/EOMI - HEAD, EARS, NOSE, MOUTH & THROAT HENMT: normocephalic/atraumatic, moist mucous membranes, normal ENT inspection, pharynx normal - NECK Neck: supple - RESPIRATORY Respiratory: lungs clear, normal breath sounds, no respiratory distress, no accessory muscle use - CARDIOVASCULAR Cardiovascular: regular rate, rhythm, no edema, no murmur - GASTROINTESTINAL (ABDOMEN) Abdominal Exam: soft, tenderness (epigastric and RUQ and LUQ tenderness). negative: guarding, rigid - MUSCULOSKELETAL Back Exam: no CVA tenderness, no vertebral tenderness Extremity: normal inspection, no pedal edema Peripheral Pulses: radial (R): 2+, radial (L): 2+ - SKIN Integumentary: normal color, warm/dry - NEUROLOGIC Neurologic: grossly normal - PSYCHIATRIC Psych/Mental Status: normal mood/affect, oriented x 3 Progress - PLAN OF CARE/RESULTS Progress/Plan/Lab Results: Vital Signs - 8 hr 04/21/19 01:41 Temperature 97.9 F Pulse Rate 89 Respiratory Rate 18 Blood Pressure 158/88 O2 Sat by Pulse Oximetry 97 Orders Category Date Time Status AMYLASE [CHEM] Stat Lab 04/21/19 01:58 Uncollected CBC WITH ELECTRONIC DIFF [HEME] Stat Lab 04/21/19 01:58 Uncollected COMPREHENSIVE METABOLIC PANEL [CHEM] Stat Lab 04/21/19 01:58 Uncollected LIPASE [CHEM] Stat Lab 04/21/19 01:58 Uncollected UA [URINALYSIS W/POSS RFLX CULT] [URINALYSIS] Stat Lab 04/21/19 01:58 Uncollected 0.9% Sodium Chloride Inj [Ns] 1,000 ml Med 04/21/19 01:58 Active IV 999 mls/hr Result Diagrams: 04/22/19 06:20 04/22/19 06:20 - REASSESSMENT Reassessment #1 Time Reassessed: 04:25 Status: improving - CONSULTS/PCP/HOSPITALIST Notification #1 *Consult/PCP/Hospitalist*: D/W DR MACARIO Time Discussed: 04:50 Consult Disposition: Admit Departure - Departure Date of Disposition Decision: 04/21/19 Time of Disposition Decision: 04:55 DIAGNOSIS: Pancreatitis Disposition: ADMITTED INPATIENT 09 Certified Medical Emergency: Emergent Condition: Stable - Critical Care Note This patient required my direct & personal management of CC.: No Attestation - Physician/ ANDREA Attestation Patient care was provided by Advanced Practice Provider:: No The physician spent face to face time with patient:: Yes Advanced Practice Provider documentation review:: Supervising physician onsite and consulted in the evaluation and care of this patient. The physician did have a face to face encounter with the patient.
[2019-04-21 02:35] LABS: URINE SOURCE CLEAN CATCH
[2019-04-21] MEDS ORDERED: MORPHINE IV ONE ×2 (02:39→02:40)
[2019-04-21] MEDS ORDERED: ZOFRAN IV ONE ×2 (02:40→02:41)
[2019-04-21 02:43] LABS: BASO# 0.02 X1000 (0.0-0.2); BASO% 0.1 % (0.0-0.8); EOS# 0.21 X1000 (0.0-0.7); EOS% 1.5 % (0.0-10.0); HEMATOCRIT 44.2 % (42.0-52.0); HEMOGLOBIN 15.4 g/dL (14.0-18.0); IMM GRAN# 0.05 X1000 (0.0-0.04); IMM GRAN% 0.3 % (0.0-0.5); LYMPH# 1.59 X1000 (1.2-3.4); MCHC 34.8 g/dL (33-37); MCV 83.2 FL (81-99); MONO# 0.91 X1000 (0.11-0.59); MONO% 6.3 % (1.7-9.3); MPV 9.4 FL (7.4-10.4); NEUT# 11.61 X1000 (1.4-6.5); NEUT% 80.8 % (42.2-75.2); PLT 345 X1000 (130-400); RBC 5.31 XMIL (4.7-6.1); WBC 14.39 X1000 (4.8-10.8)
[2019-04-21 02:45] LABS: BILIRUBIN URINE NEGATIVE (NEGATIVE); BLOOD URINE NEGATIVE (NEGATIVE); COLOR YELLOW; GLUCOSE URINE 100 mg/dL (NEGATIVE); KETONE URINE 10 mg/dL (NEGATIVE); LEUKOCYTES URINE NEGATIVE (NEGATIVE); NITRITE URINE NEGATIVE (NEGATIVE); PH URINE 7.5; PROTEIN URINE NEGATIVE (NEGATIVE); SP GRAVITY URINE 1.011; TURBIDITY URINE CLEAR (CLEAR); UROBILINOGEN URINE NORMAL (NORMAL)
[2019-04-21 02:46] LABS: UR EPITHELIAL CELLS <10 /HPF (<10); URINE BACTERIA NEGATIVE /HPF; URINE RBC <10 /HPF (<10); URINE WBC <10 /HPF (<10)
[2019-04-21 03:27] LABS: AGAP 16; ALB/GLOB RATIO 1.3; ALBUMIN 4.9 g/dL (3.5-5.0); ALKALINE PHOSPHATASE 115 U/L (32-122); AMYLASE 620 U/L (20-200); BUN 19 mg/dL (8-22); CALCIUM 9.7 mg/dL (8.8-10.2); CHLORIDE 96 mmol/L (98-107); COSMO 281; CREATININE 0.9 mg/dL (0.7-1.2); ESTIMATED GFR > 60; GLUCOSE 183 mg/dL (70-104); GOT 42 U/L (10-34); GPT 43 U/L (10-44); LIPASE 1564 U/L (13-60); POTASSIUM 3.4 mmol/L (3.5-5.1); SODIUM 137 mmol/L (136-145); TCO2 25 mmol/L (25-35); TOTAL PROTEIN 8.7 g/dL (6.3-8.3)
--- NOTE | 2019-04-21 04:43 | Diag Imaging Result Doc PS360 ---
EXAM: CT ABD/PELVIS W/IV CONT ONLY INDICATION: abd pain, hx of pancreatitis TECHNIQUE: This exam was performed using automated exposure control, adjustment of mA or kV according to patient size, and/or use of iterative reconstruction technique. COMPARISON: 02/21/2019 FINDINGS: There is minimal subsegmental atelectasis at the lung bases. There has been a prior cholecystectomy. There is no biliary dilatation. There is likely minimal hepatic steatosis. The spleen is unremarkable. There is inflammatory stranding around the head of the pancreas consistent with acute pancreatitis. No loculated abscess is identified. No pancreatic necrosis is appreciated. There is a stable small cyst involving the tail of the pancreas. The adrenal glands, kidneys, and urinary bladder are unremarkable. There is a small right inguinal hernia that contains only fat. It is stable. There is a stable left scrotal hydrocele. There is uncomplicated sigmoid colonic diverticulosis. The appendix is normal. There is a stable small hiatal hernia. The remainder of the GI tract is grossly unremarkable. There are small shotty lymph nodes at the root of the mesentery with surrounding haziness in a pattern that is often associated with chronic mesenteric panniculitis. It is stable. IMPRESSION: 1.Acute pancreatitis as described. 2.Other incidental/nonacute findings detailed above. Electronically signed by Ezequiel Bloom 04/21/2019 4:41 AM
[2019-04-21] MEDS: NS 1,000 ML IV SCH ×4 (05:13→21:10)
[2019-04-21] MEDS: POTASSIUM CHLORIDE 20 MEQ/SWI 20 MEQ/100 ML IVPB IV SCH ×2 (06:19→12:07)
[2019-04-21] MEDS: MORPHINE IV PRN ×3 (06:19→21:10)
--- NOTE | 2019-04-21 07:15 | HISTORY AND PHYSICAL ---
CHIEF COMPLAINT: Abdominal pain. HISTORY OF PRESENT ILLNESS: This is a pleasant 69-year-old male who has a history of pancreatitis. He was seeing a GI specialist, Dr. Murray at [facility] yesterday related to his pancreatitis. On the way home, they stopped and ate dinner. He got back home around 4:00 p.m. and said he was not feeling well so he laid down. Got up around 10:00, continued not to feel well, took some Metamucil. Woke up later in the night and was having intense cramping abdominal pain on the right upper and lower quadrant as well as epigastric pain and would not go away. He rated it 6- 8 out of 10. Had 2 episodes of emesis with nausea. Denied any fevers, chills, constipation or diarrhea. He came into the emergency room. A CT scan was obtained which did show acute pancreatitis. He will be admitted for further evaluation and treatment. PAST MEDICAL HISTORY: 1. Pancreatitis. 2. Acute cystitis. 3. Pancreatic pseudocyst. 4. Hypertension. SURGICAL HISTORY: 1. Status post cholecystectomy. 2. Pancreatic stent placement. 3. Colonoscopy. FAMILY HISTORY: Dad of a myocardial infarction. Mother from infection after her gallbladder burst. SOCIAL HISTORY: No tobacco, alcohol or illicit drugs. ALLERGIES: Hydrocodone. HOME MEDICATIONS: List is not available. REVIEW OF SYSTEMS: Fourteen point review of systems conducted with the patient. Pertinent positives listed above in the HPI. All other systems reviewed and found to be negative. PHYSICAL EXAMINATION: VITAL SIGNS: Temp 97.9 degrees, pulse 89, respirations 18, blood pressure 158/88, oxygen saturation 97% on room air. GENERAL: Pleasant 69-year-old male lying in the ER stretcher. Answers all questions appropriately. is at the bedside, very attentive. HEENT: Head is atraumatic, normocephalic. Pupils equal, round, reactive to light. Extraocular eye movements intact. Sclerae anicteric. Conjunctivae pink. Oral mucosa is moist. NECK: Supple. No JVD. No thyromegaly. Trachea is midline. No cervical lymphadenopathy. CARDIAC: S1, S2 appreciated. No murmurs, gallops, rubs. LUNGS: Clear to auscultation bilaterally. No rhonchi, wheezes, rubs. Symmetric rise and fall of respirations. ABDOMEN: Soft, nondistended, diffusely tender. Greatest area of tenderness is right upper quadrant epigastric but diffusely tender. Bowel sounds present all 4 quadrants, normoactive. No pulsatile masses. No organomegaly. EXTREMITIES: No cyanosis, clubbing or edema. 2+ pedal pulses bilaterally. GENITOURINARY: No bladder distention. Patient voids. Otherwise deferred. NEUROLOGICAL: Alert and oriented x3. Cranial nerves 2-12 grossly intact. DIAGNOSTIC DATA: CT of the abdomen showed acute pancreatitis. LABORATORY DATA: WBC 14.39, hemoglobin 15.4, hematocrit 44.2, platelet count 345,000. Sodium 137, potassium 3.4, chloride 96, carbon dioxide 25, BUN 19, creatinine 0.9, glucose 183. Lipase 1,564. Urine unremarkable. ASSESSMENT AND PLAN: 1. Acute pancreatitis. We will consult GI. NPO. Fluids and pain management will be ordered. I do not believe the patient's Creon. This might be helpful after the acute phase is over. 2. Hypokalemia, likely related to nausea and vomiting. We will replace and recheck. 3. Nausea and vomiting secondary to #1. Give Zofran as needed. 4. Hyperglycemia. Check hemoglobin A1c. Patient does not have diabetes mellitus as far as I am aware. 5. Current treatment for a sinus infection. I believe he is taking doxycycline. I believe is close to the end of his treatment. We will not continue at this time. Further recommendations per patient's clinical course. Dictated by SHASHANK Vela for Lukas Rey MD I have performed a face to face diagnostic evaluation. Labs/ xrays- reviewed. Exam- Chest- clear, CV-regular, Abd- diffuse tenderness. A/P- Acute pancreatitis- Admit, NPO, pain control, antiemetics, GI consult. Dr. Rey cc: SHASHANK Vela MD Jay Pohl, MD Dr. Hoppman MTDD
[2019-04-21] MEDS ORDERED: SODIUM CHLORIDE 0.9% INJ SCH (10:13)
[2019-04-21] MEDS: LOVENOX SUBQ SCH (11:53)
[2019-04-21] MEDS: ZOFRAN IV PRN (11:54)
[2019-04-21] MEDS: PEPCID IV SCH ×2 (11:54→21:14)
--- NOTE | 2019-04-21 15:13 | GASTROENTEROLOGY CONSULTATION ---
DATE: 04/21/2019 REASON FOR CONSULTATION: Acute recurrent pancreatitis. HISTORY OF PRESENT ILLNESS: Mr. 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 The patient was recently hospitalized here in February of this year for recurrent pancreatitis. At that time, the patient improved with supportive care and was instructed to follow up with Dr. Murray at [facility] for a scheduled MRI. Yesterday, the patient was seen at [facility] by Dr. Murray and the plan was for him to be scheduled for an MRI plus or minus EUS for further evaluation of recurrent pancreatitis. Last evening, around 10:30 p.m., he awoke with severe epigastric pain described as pressure radiating to his back and right periumbilical area. He complained of some associated diaphoresis and abdominal distention, and some nonbloody emesis. The rest of his review of systems was negative. The patient denies any sort of precipitating event. He was started on doxycycline last Friday for "sinusitis". Prior to onset of symptoms, the patient was at his usual state of health. Of note, 2 weeks ago, the patient underwent EGD and colonoscopy with Dr. Lares in the office, and was found to have diverticulosis. REVIEW OF SYSTEMS: As per HPI. Otherwise, 12 point review of systems is negative. PAST SURGICAL HISTORY: Hernia repair, percutaneous pseudocyst drainage, cystogastrostomy, pancreatic stent placement, cholecystectomy. MEDICATIONS: Omeprazole, amlodipine, losartan, and doxycycline. ALLERGIES: To codeine and acetaminophen. FAMILY HISTORY: No family history of pancreatitis. SOCIAL HISTORY: No smoking, alcohol, or drug use. PHYSICAL EXAMINATION: Vital Signs: Temperature is 98.2, heart rate of 80, respiratory rate 17, blood pressure 173/102, O2 saturation 95% on room air. General: The patient is awake, alert, and oriented. No acute distress. HEENT: Sclerae are anicteric. Moist mucous membranes. Extraocular motor intact. Neck is supple. No JVD or lymphadenopathy. Cardiac: Regular rate and rhythm. No murmurs, rubs, or gallops. Lungs are clear to auscultation bilaterally. No wheezing. Abdomen is obese, soft. Hypoactive bowel sounds. Mild tenderness to palpation in the epigastric, right abdominal area. No rebound or guarding. No ascites. Extremities: No clubbing, cyanosis, or edema. Neurologic: Nonfocal. LABS: White count of 14.39, hemoglobin is 15.4, platelets of 345,000. Sodium 137, potassium 3.4, chloride of 96, bicarb 25, BUN of 19, creatinine of 0.9, glucose of 183. AST of 42, ALT of 43, alkaline phosphatase 115, total bilirubin of 0.70, total protein of 8.7, albumin of 4.9, lipase of 1564. UA showed glucose and ketones. IMAGING: A CT of the abdomen and pelvis shows acute pancreatitis, otherwise no acute findings. ASSESSMENT AND PLAN: Mr. Best Wynn is a 69-year-old gentleman with a past medical history of necrotizing pancreatitis complicated by pseudocyst requiring drainage and percutaneous stents as well as cystogastrostomy, who presents with acute recurrent pancreatitis. The patient has had a negative workup in the past that included autoimmune pancreatitis, hyper- triglycerides, and pancreatic divisum. He is not a smoker and does not drink any alcohol. The patient reports having a endoscopic ultrasound in the past which was being planned for repeat at [facility]. He has had an MRI here in the past that was negative for a pancreatic divisum or stricture. He was recently seen by Dr. Murray at [facility] yesterday who was preparing further workup for his recurrent pancreatitis there. Currently, he appears nontoxic. Vital signs are stable. Labs are notable for some mild hypokalemia and leukocytosis. CT does not show any evidence of complications of pancreatitis. We will treat him supportively with intravenous fluids, aggressive hydration. I would start him on 200 mL an hour of normal saline. We will keep him nothing per oral with pain control and antiemetics as needed. We will trend his chemistries daily and replete electrolytes as needed. The patient will likely need to follow up with [facility] for further workup of his recurrent pancreatitis including genetic etiologies of his disease. # Acute recurrent pancreatitis # Hypokalemia # Leukocytosis # History of pancreatic pseudocyst Thank you for this consult. We will follow with you. Please call with any questions or concerns. MTDD
[2019-04-22 07:12] LABS: BASO# 0.03 X1000 (0.0-0.2); BASO% 0.3 % (0.0-0.8); EOS# 0.49 X1000 (0.0-0.7); EOS% 4.9 % (0.0-10.0); HEMATOCRIT 37.8 % (42.0-52.0); HEMOGLOBIN 12.6 g/dL (14.0-18.0); IMM GRAN# 0.03 X1000 (0.0-0.04); IMM GRAN% 0.3 % (0.0-0.5); LYMPH# 2.49 X1000 (1.2-3.4); MCH 28.5 PG (27-31); MCHC 33.3 g/dL (33-37); MCV 85.5 FL (81-99); MONO# 0.73 X1000 (0.11-0.59); MONO% 7.3 % (1.7-9.3); MPV 9.5 FL (7.4-10.4); NEUT# 6.19 X1000 (1.4-6.5); NEUT% 62.2 % (42.2-75.2); PLT 300 X1000 (130-400); RBC 4.42 XMIL (4.7-6.1); RDW 13.2 % (11.5-14.5); WBC 9.96 X1000 (4.8-10.8)
[2019-04-22 07:19] LABS: AGAP 12; BUN 15 mg/dL (8-22); CALCIUM 8.5 mg/dL (8.8-10.2); CHLORIDE 102 mmol/L (98-107); COSMO 279; CREATININE 0.8 mg/dL (0.7-1.2); ESTIMATED GFR > 60; GLUCOSE 111 mg/dL (70-104); POTASSIUM 3.6 mmol/L (3.5-5.1); SODIUM 139 mmol/L (136-145); TCO2 25 mmol/L (25-35)
[2019-04-22] MEDS: NS 1,000 ML IV SCH ×4 (07:37→22:14)
[2019-04-22 09:44] LABS: AMYLASE 87 U/L (20-200); LIPASE 94 U/L (13-60)
--- NOTE | 2019-04-22 11:27 | Diag Imaging Result Doc PS360 ---
EXAM: US ABDOMEN-COMPLETE HISTORY: recurrent pancreatitis TECHNIQUE: Abdominal ultrasound COMPARISON: CT from 04/21/2019 FINDINGS: No abdominal aortic aneurysm. The liver is prominent measuring 20.1 cm. Mild fatty infiltration. No ascites in the right upper quadrant. Normal right kidney. No hydronephrosis. Normal left kidney. No hydronephrosis. Normal spleen. The gallbladder has been removed. The common bile duct measures 7 mm. The pancreas is obscured. IMPRESSION: 1.Cholecystectomy 2.Prominent liver with fatty infiltration Electronically signed by Darrell López 04/22/2019 11:25 AM
[2019-04-22] MEDS: PEPCID IV SCH ×2 (12:13→22:13)
[2019-04-22] MEDS: LOVENOX SUBQ SCH (12:13)
--- NOTE | 2019-04-22 12:27 | GASTROENTEROLOGY PROGRESS NOTE ---
DATE: 04/22/2019 ATTENDING PHYSICIAN: Dr. Thompson. PRIMARY PHYSICIAN: Dr. Mike Pond. SUBJECTIVE: Patient is resting in bed. He is feeling better. His abdominal pain is improving. He denies any nausea or vomiting. He is hungry, he wants to eat. He denies any fevers, rigors, chills. He has not moved his bowels since admission. He had just seen Dr. Jackson at [facility] on Friday for recurrent pancreatitis since 2012. Initially he had severe necrotizing pancreatitis complicated with pancreatic pseudocyst. He required cyst gastrostomy, pancreatic stent placement. He had been fine until 2019 in February, he had admission for acute pancreatitis which resolved with conservative treatment. He has saw me in the clinic in March. He had an EGD/colonoscopy done at that time. He just saw Dr. Jackson on 04/20/2019, for recurrent pancreatitis. The plan was to do MRI of the pancreas as well as EUS and possible ERCP. In the meanwhile, on Friday on returning from [place], he had lunch and dinner and that night he started having abdominal pain and was admitted to the hospital with severe pancreatitis with hydration and conservative management. His amylase and lipase are normalized. Abdominal pain has improved and he is feeling better. PHYSICAL EXAMINATION: Vital Signs: Temperature 98.6 degrees, pulse 117, respiratory rate of 17, blood pressure 96/50, saturating 98% on nasal cannula. Body weight of 205 pounds, BMI of 32.1 kg/m2. General appearance: Moderately well nourished, lying in bed, in no acute distress. HEENT: Mild pallor. No icterus. Pupils equal, reactive to light. Neck: Supple. Abdomen: No rebound or guarding. Extremities: No cyanosis, clubbing. Neurologic: Alert, awake, oriented x3. LABORATORY DATA: Hemoglobin and hematocrit is 12.7 and 37.8, white count 9.96, platelet count of 300,000. Sodium 139, potassium 3.6 chloride 102, bicarb 25, anion gap 12, BUN of 15, creatinine 0.8, glucose of 111, calcium is 8.5. Total bilirubin is 0.7, AST 42, ALT 43, alkaline phosphatase 115, total protein is 8.7, albumin of 4.9. CRP 30.26. Amylase of 87, lipase of 94 today, yesterday amylase was 620, lipase of 1564. TSH 3.88. Urinalysis showing positive glucose, positive ketones. Prior to that, IgG 4 level was 22.7, this was on 02/22/2019. MORRIS was negative. Antismooth muscle antibody was negative, and last time when we checked his triglycerides it was 107 on 02/22/2019. IMAGING: CT scan of the abdomen and pelvis showed evidence of minimal subsegmental atelectasis in the lung bases. There has been prior cholecystectomy. There is no biliary dilation. There is likely minimal hepatic steatosis. The spleen is unremarkable. There is inflammatory stranding around the head of the pancreas consistent with acute pancreatitis. No loculated abscess is identified. No pancreatic necrosis is appreciated. There is stable small cyst involving the tail of the pancreas. There is a small right inguinal hernia which contains only fat, it is stable. There is stable left scrotal hydrocele. There is uncomplicated sigmoid colonic diverticulosis. There is stable small hiatal hernia. There are small shotty lymph nodes at the root of the mesentery with surrounding haziness in a pattern that is often associated with chronic mesenteric panniculitis, is stable. IMPRESSION: 1. Acute recurrent pancreatitis of unclear etiology. He is being followed by Dr. Jackson at [facility]. 2. Fatty liver. 3. Diverticulosis coli. 4. Hiatal hernia. 5. Mild obesity, BMI of 32.1. 6. Mild anemia. 7. Mildly elevated liver enzymes, likely secondary to fatty liver disease. RECOMMENDATIONS: The patient will continue IV fluids. We will start him on a clear liquid diet. He will continue Pepcid 20 mg IV b.i.d. for GI prophylaxis. He is on Lovenox for DVT prophylaxis and morphine 2 mg IV every 3 hours as needed for abdominal pain. He is on IV fluid at 100 per hour of normal saline. He is on antiemetics, Zofran 4 mg IV every 4 hours as needed. The patient was counseled to lose weight. The patient will be on low-fat diet. The patient will call Dr. Jackson at [facility] for further workup. The patient was planned for MRI at [facility] of the pancreas to evaluate for any kind of pancreatic ductal strictures. He is also planning endoscopic ultrasound and possible ERCP at [facility]. The patient will call [facility] to schedule. He may benefit from a genetic studies like CFTR gene, SPINK-1 gene, PRSS-1 gene mutations studies but we will leave to the discretion of Dr. Jackson at [facility]. The above plans discussed with the patient and all questions were answered. Please call us with any further questions. cc: MD Mike Sampson MD Raphael K. Quansah, MD Dr. Wilcox
--- NOTE | 2019-04-22 15:48 | PROGRESS NOTE ---
DATE: 04/22/2019 SUBJECTIVE: This morning Mr. Wynn refers to be doing a whole lot better. He said he has been able to tolerate his clear and full liquid diet and there was no pain and no nauseation either. OBJECTIVE: Vital signs: Blood pressure is 132/74, pulse of 78, respirations 16, temperature 98.1 degrees. General: Mr. Wynn is a 69-year-old male. He is in bed no distress. Mucosa is pink and moist. Anicteric. Acyanotic. Neck: Supple. Chest: Good air entry bilaterally. No crepitations. No rhonchi. Abdomen: Soft, nontender. Bowel sounds present. Extremities: No pedal edema. SENIOR COMPENSATION ANALYST: Patient is awake, alert, and oriented. LABORATORY DATA: Chemistry is reviewed. The lipase has gone down to 94. ASSESSMENT: 1. Acute recurrent pancreatitis of unclear etiology. The patient follows up with Dr. Jackson at [facility]. He has also been seen over here by Dr. Doctor Lares. He is tolerating his clear liquids. We are going to advance diet later on today and see if he tolerates it. 2. Fatty liver disease. 3. Hypertension controlled. PLAN: So in general I think Mr. Wynn is doing a lot better. He is tolerating his clear liquid. We are going to advance diet. If he tolerates it we can hopefully discharge him tomorrow to continue his regular care with Dr. Jackson in [facility] and also with Dr. Lares. cc: Elder Thompson MD
[2019-04-23] MEDS: MORPHINE IV PRN (01:01)
[2019-04-23] MEDS: NS 1,000 ML IV SCH ×3 (01:01→05:43)
[2019-04-23] MEDS: ZOFRAN IV PRN (01:01)
[2019-04-23] MEDS: PEPCID IV SCH (10:48)
[2019-04-23] MEDS: LOVENOX SUBQ SCH (10:48)
[2019-04-23 11:44] VITALS: BP 135/69
--- NOTE | 2019-04-23 22:59 | PROVIDER PROGRESS NOTE ---
Progress Note S: No acute overnight events. Afebrile. No N/V. He is tolerating diet. +BM. No rectal bleeding. Minimal abdominal discomfort last evening. O: Last Vital Signs Temp 98.1 F 04/23/19 11:43 Pulse 62 04/23/19 11:43 Resp 20 04/23/19 11:43 BP 135/69 04/23/19 11:43 Pulse Ox 97 04/23/19 11:43 Height 5 ft 7 in Weight 205 lb GEN: awake, alert, NAD HEENT: anicteric, MMM NECK: supple, no jvd PULM: CTAB, no wheezing ABD: soft NT/ND, NABS EXT: no cce NEURO: nonfocal LABS: None ASSESSMENT AND PLAN: Mr. Best Wynn is a 69-year-old gentleman with a past medical history of necrotizing pancreatitis complicated by pseudocyst requiring percutaneous drainage and cystogastrostomy in the past presents with acute recurrent pancreatitis. Patient has had extensive workup in the past. Outpatient MRI and EUS planned at [facility]. His symptoms improved significantly with supportive care. Recommend low fat diet upon discharge and follow-up at [facility] and Dr. Lares. If imaging studies negative, consider workup for hereditary pancreatitis. Patient discharged
--- NOTE | 2019-04-24 06:11 | DISCHARGE SUMMARY ---
ADMISSION DATE: 04/21/2019 DISCHARGE DATE: 04/23/2019 DISPOSITION: Home. FOLLOWUP: 1. Dr. Lares. 2. Dr. Jackson in [facility]. 3. Dr. Mike Pond CONSULTATIONS DURING THIS ADMISSION: GI was consulted. Patient was seen by Dr. Espinoza, followed up by Dr. Valverde. INVASIVE PROCEDURES DONE DURING THIS ADMISSION: None. IMAGING STUDIES OF SIGNIFICANCE: 1. An abdomen and pelvis CT scan did show acute pancreatitis. 2. Ultrasound of the abdomen did show cholecystectomy, prominent liver with fatty infiltration. ADMISSION DIAGNOSES: 1. Acute pancreatitis. 2. Hypokalemia. 3. Hyperglycemia. DIAGNOSES AT THE TIME OF DISCHARGE: 1. Acute recurrent pancreatitis of unclear etiology. Patient has had an extensive workup which has been unrevealing. He is supposed to follow up with Dr. Jackson at [facility]. 2. Fatty liver disease. 3. Hypertension. 4. Obesity with body mass index of 32.1. 5. Clinical volume depletion, improved. DISCHARGE MEDICATIONS: 1. Omeprazole 20 mg p.o. daily. 2. Amlodipine 20 mg p.o. daily. 3. Losartan 50 mg p.o. daily. 4. Metamucil. 5. [place]. PRESENTING COMPLAINT: Abdominal pain. HISTORY OF PRESENTING COMPLAINT: Mr. Wynn is a 69-year-old male who has an extensive history of pancreatitis, has been seen by multiple surgeons, multiple GI doctors in [facility] including Dr. Murray and Dr. Jackson. He is currently undergoing investigations. He came to the emergency department because of abdominal pain. Investigation revealed acute pancreatitis. Mr. Wynn was admitted for further medical care. HOSPITAL COURSE: Mr. Wynn was initially admitted to the medical floor, was kept n.p.o. Pain was controlled with IV opioids and was adequately fluid resuscitated. During the hospital course his symptoms remarkably improved and his lipase dropped from 1564 to 94. He felt a lot better. He started tolerating his p.o. nutrition and medications. This morning he feels a whole lot better. He has no more pain. No nauseation. He feels great. He is going to be discharged in stable condition. Patient has been evaluated by GI and they are also okay for patient to be discharged. His current vitals, blood pressure is 135/69, pulse of 62, respiration is 20, temperature 98.1 degrees. Physical exam is unremarkable. Mr. Wynn is being discharged in stable condition. At the time of the discharge, the and other family members were at the bedside. All the discharge recommendations were discussed with them all and they voiced understanding. TIME SPENT FOR DISCHARGE: 35 minutes. cc: MD Dr. Mike Ford MD [facility]Anthony
== END 2019-04-23 14:47 | disposition home or self-care (01) | DRG 440 ==
LOC: ED 01:34 → SUATTDRO 06:14 → EDIPHOLD 06:14 → 4N 14:36
PROVIDERS: ATTEND Internal Medicine